=== PATIENT | female | born 1990 | race Caucasian/White ===

== ENCOUNTER 2017-08-30 13:20 | Emergency (ER) | payer BC ==
[~2017-08-30] VITALS: Ht 157.5 cm; Wt 50.0 kg
[2017-08-30] MEDS ORDERED: METHYLPREDNISOLONE SOD SUCC 125 MG/2 ML VIAL IV ONE (14:00)
[2017-08-30 16:09] VITALS: BP 126/88
== END 2017-08-30 16:10 | disposition home or self-care (01) ==
LOC: ER 13:57
DX: T78.40XA Allergy, unspecified, initial encounter (principal); X58.XXXA Exposure to other specified factors, initial encounter
CPT/HCPCS: 96374; 99284; J2930; Z7610